=== PATIENT | male | born 1975 | race Two or more races ===

== ENCOUNTER 2018-01-27 14:17 | Emergency (ER) | payer MEDICAID ==
[~2018-01-27] VITALS: Ht 177.8 cm; Wt 86.2 kg
[2018-01-27 14:43] VITALS: Ht 177.8 cm; Wt 86.2 kg
[2018-01-27 17:12] VITALS: BP 137/93
== END 2018-01-27 17:12 | disposition home or self-care (01) ==
LOC: ED 14:17
DX: J09.X2 Influenza due to identified novel influenza A virus with other respiratory manifestations (principal)
CPT/HCPCS: 87804; J1885